=== PATIENT | female | born 1980 | race Caucasian/White ===

== ENCOUNTER → 2018-11-08 | Outpatient (CLI) | payer OTHER ==
[~2018-11-08] MED LIST: ACE3 PO; IBU600 PO; IBU800 PO
--- NOTE | 2018-11-09 08:22 | RADIOLOGY IMAGING REPORT ---
FACILITY: [facility] PATIENT NAME: RAY COTE : [id number] MR: [id number] V: [id number] EXAM DATE: [id number] ORDERING PHYSICIAN: VICKY BROWN TECHNOLOGIST: Crystal Peguero RDMS(ABD,OBGYN,BR),RVT PROCEDURE:BILATERAL DIAGNOSTIC DIGITAL MAMMOGRAM WITH CAD ASSISTED INTERPRETATION & 3D TOMOSYNTHESIS REASON FOR STUDY: Palpable lump upper outer quadrant of the Left breast. FAMILY HISTORY OF BREAST CANCER: Mother in her 50's BREAST PROCEDURES/TREATMENTS: None COMPARISON STUDIES: None MAMMOGRAM VIEWS OBTAINED: Bilateral 2D & 3D full field CC & MLO projections BREAST DENSITY: The breasts are heterogeneously dense which can obscure small masses. MAMMOGRAM FINDINGS: There are multiple circumscribed rounded masses seen throughout the Left breast. No malignant appearing calcifications are identified in either breast. ULTRASOUND LEFT BREAST AREA SCANNED: The entire Left breast was imaged. ULTRASOUND FINDINGS: There are numerous cysts seen throughout the Left breast. The largest cyst is in the 1 o'clock position in the location of patient's palpable findings. This measures 1.3cm in diameter. No solid masses were demonstrated. DIAGNOSTIC CATEGORY 2--BENIGN FINDING. RECOMMENDATIONS: ROUTINE MAMMOGRAM AND CLINICAL EVALUATION. IMPRESSION: BIRADS 2: Benign finding. There are numerous Left sided breasts cysts. The largest is in the 1 o'clock position measuring 1.3cm in diameter & accounts for patient's palpable findings. Dictated by: Chelsi Leon M.D. on 11/08/2018 at 16:36 Approved by: Chelsi Leon M.D. on 11/09/2018 at 8:18 [facility]
--- NOTE | 2018-11-09 08:22 | RADIOLOGY IMAGING REPORT ---
FACILITY: [facility] - [place] PATIENT NAME: RAY COTE : [id number] MR: [id number] V: [id number] EXAM DATE: [id number] ORDERING PHYSICIAN: VICKY BROWN TECHNOLOGIST: Carmelita Mast PROCEDURE:BILATERAL DIAGNOSTIC DIGITAL MAMMOGRAM WITH CAD ASSISTED INTERPRETATION & 3D TOMOSYNTHESIS REASON FOR STUDY: Palpable lump upper outer quadrant of the Left breast. FAMILY HISTORY OF BREAST CANCER: Mother in her 50's BREAST PROCEDURES/TREATMENTS: None COMPARISON STUDIES: None MAMMOGRAM VIEWS OBTAINED: Bilateral 2D & 3D full field CC & MLO projections BREAST DENSITY: The breasts are heterogeneously dense which can obscure small masses. MAMMOGRAM FINDINGS: There are multiple circumscribed rounded masses seen throughout the Left breast. No malignant appearing calcifications are identified in either breast. ULTRASOUND LEFT BREAST AREA SCANNED: The entire Left breast was imaged. ULTRASOUND FINDINGS: There are numerous cysts seen throughout the Left breast. The largest cyst is in the 1 o'clock position in the location of patient's palpable findings. This measures 1.3cm in diameter. No solid masses were demonstrated. DIAGNOSTIC CATEGORY 2--BENIGN FINDING. RECOMMENDATIONS: ROUTINE MAMMOGRAM AND CLINICAL EVALUATION. IMPRESSION: BIRADS 2: Benign finding. There are numerous Left sided breasts cysts. The largest is in the 1 o'clock position measuring 1.3cm in diameter & accounts for patient's palpable findings. Dictated by: Chelsi Leon M.D. on 11/08/2018 at 16:36 Transcribed by: JED on 11/09/2018 at 7:14 Approved by: Chelsi Leon M.D. on 11/09/2018 at 8:18 [facility]
== END ==
LOC: US 00:17
PROVIDERS: ATTEND Obstetrics & Gynecology
DX: N63.21 Unspecified lump in the left breast, upper outer quadrant (principal)
CPT/HCPCS: 77062; 77066